=== PATIENT | female | born 1950 | race Caucasian/White ===

== ENCOUNTER 2018-01-29 11:03 | Day surgery (SDC) | payer MEDICARE, BC ==
[2018-01-29] MEDS ORDERED: MUPIROCIN 2% OINT 1 APPLIC/GM SYR NASAL SCH (11:45)
[2018-01-29] MEDS ORDERED: CHLORHEXIDINE GLUCONATE 2 % 1 PACK (2 CLOTHS) TOPICAL SCH (11:45)
[2018-01-29] MEDS ORDERED: ceFAZolin 2 GM PREMIX 50 ML IV SCH (11:45)
[2018-01-29] MEDS ORDERED: POVIDONE IODINE 5% (ANTISEPSIS KIT) 4 APPLICATIONS EACH NARE SCH (11:45)
[2018-01-29] MEDS ORDERED: NO HOME MEDICATIONS (11:47)
[2018-01-29] MEDS ORDERED: NS 1000 ML IV SCH (12:00)
[2018-01-29] MEDS ORDERED: MIDAZOLAM HCL 5 MG/ML VIAL (1 ML) ONE (12:45)
--- NOTE | 2018-01-29 13:36 | MA ---
cc: Drake Chambers MD DATE: 01/29/2018 INDICATION FOR PROCEDURE: Atrial fibrillation detection. PROCEDURES PERFORMED: 1. 15 minutes of monitored IV sedation. 2. Loop recorder insertion. DESCRIPTION OF PROCEDURE: The patient was brought to the DOC Unit in the postabsorptive state after informed consent was obtained; 4 mg of Versed and 100 mcg of fentanyl was given for moderate IV sedation. Next, a [employer] LINQ loop recorder was inserted subcutaneously into the left chest. The patient tolerated the procedure well without any apparent complications. Tachybrady pause and atrial fibrillation detection was enabled. The initial R-wave was 0.21 millivolts. The serial number was [id number]. MD LACY Avelar/RAMESH , 01:16 PM , 01:35 PM
== END 2018-01-29 14:20 | disposition home or self-care (01) ==
LOC: HDOC 11:03 → HDIC 11:04 → HDOC 14:20
PROVIDERS: ATTEND Nuclear Medicine Nuclear Cardiology
DX: I48.0 Paroxysmal atrial fibrillation (principal); C85.90 Non-Hodgkin lymphoma, unspecified, unspecified site; E66.9 Obesity, unspecified; I10 Essential (primary) hypertension; R94.31 Abnormal electrocardiogram [ECG] [EKG]; Z79.82 Long term (current) use of aspirin
CPT/HCPCS: 33282; 99152; C1764; J0690; J2250; J3010